=== PATIENT | male | born 1990 | race Hispanic/Latino ===

== ENCOUNTER 2017-05-15 22:00 | Emergency (ER) | payer OTHER ==
[~2017-05-15] VITALS: Ht 162.6 cm; Wt 70.4 kg
[2017-05-16] MEDS ORDERED: NORCO 5/3251 TABLET PO (01:15)
[2017-05-16] MEDS ORDERED: MOTRIN800 MG PO (01:15)
[2017-05-16 01:48] VITALS: BP 115/75
== END 2017-05-16 01:55 | disposition home or self-care (01) ==
LOC: EME 22:00
PROC: 2W39X1Z Immobilization of Left Upper Extremity using Splint (ICD-10-PCS; principal; 2017-05-16)
DX: S62.391A Other fracture of second metacarpal bone, left hand, initial encounter for closed fracture (principal); W23.0XXA Caught, crushed, jammed, or pinched between moving objects, initial encounter; Y99.0 Civilian activity done for income or pay
CPT/HCPCS: 73130; 99281; 99283